=== PATIENT | male | born 1995 | race African-American/Black ===

== ENCOUNTER 2017-09-04 20:48 | Emergency (ER) | payer MEDICAID, OTHER ==
[~2017-09-04] VITALS: Ht 185.4 cm; Wt 106.0 kg
[2017-09-04 20:51] VITALS: BP 139/101
[2017-09-04] MEDS ORDERED: PROPARACAINE OPHTH 0.5%, 15ML ONE (21:43)
[2017-09-04] MEDS ORDERED: FLUORESCEIN OPHTHALMIC 1 MG STRIP EACHEYE ONE (22:00)
[2017-09-04] MEDS ORDERED: ERYTHROMYCIN OPHTH 0.5%, 1GM EACHEYE ONE (22:00)
[2017-09-04] MEDS ORDERED: PROPARACAINE OPHTH 0.5%, 15ML EACHEYE ONE (22:00)
[2017-09-04] MEDS ORDERED: HYDROcodone/APAP 5/325 TABLET ONE (22:24)
[2017-09-04] MEDS ORDERED: HYDROcodone/APAP 5/325 TABLET PO ONE (22:30)
== END 2017-09-04 23:25 | disposition home or self-care (01) ==
LOC: ED 23:00
DX: S05.01XA Injury of conjunctiva and corneal abrasion without foreign body, right eye, initial encounter (principal); X58.XXXA Exposure to other specified factors, initial encounter; Y93.89 Activity, other specified; Y92.89 Other specified places as the place of occurrence of the external cause; Y99.8 Other external cause status
CPT/HCPCS: 99283